=== PATIENT | female | born 1960 | race Caucasian/White ===

== ENCOUNTER 2017-01-02 14:22 | Outpatient (CLI) | payer MEDICARE, MEDICAID ==
[~2017-01-02 14:22] MED LIST: Gadobenate Dimeglumine 529 MG/1 ML (20ML VIAL) ONE
--- NOTE | 2017-01-02 18:41 | MRI ---
EXAM: CERVICAL SPINE MRI WITH AND WITHOUT CONTRAST 01/02/17 HISTORY: Left sided arm pain times several years. COMPARISON: None. TECHNIQUE: Cervical spine MRI is performed with and without intravenous gadolinium administration. Multisequent ial, multiplanar imaging is performed. FINDINGS: There is appropriate T1 marrow signal intensity of the cervical vertebrae. Cervical spine vertebral body height is maintained. No fracture. 2.5 mm of anterolisthesis of C4 upon C5. There is no evidenc e of significant STIR hyperintensity or abnormal enhancement. Note, evaluation of the C5, C6 and C7 levels is limited due to anterior fusion changes with resultan t metallic susceptibility artifact. Postcontrast images do not demonstrate any abnormal enhancement with regards to the visualized brain parenchyma or cervical cord. Thoracic cord is also unremarkable . C2-C3: No significant disc osteophyte complex. No significant central canal stenosis. Neural foramin a are patent. C3-C4: No significant disc osteophyte complex. No significant central canal stenosis. Neural foramin a are patent. There appears to be posterior decompression laminectomy changes. C4-C5: No significant disc osteophyte complex. No significant central canal stenosis. Right neural f oramen is patent. Moderate left foraminal narrowing due to degenerative changes of the uncovertebral joint and facet hypertrophy. Posterior decompressive laminectomy changes are identified. C5-C6: There is a presumed disc prosthesis. There is a small left paracentral osteophyte complex louis t abuts the thecal sac. No high grade central canal stenosis. Posterior decompressive laminectomy ch maggie are identified. Moderate bilateral foraminal narrowing due to degenerative change in the uncove rtebral joint. C6-C7: No significant disc osteophyte complex. No significant central canal stenosis. Nonspecific T2 hyperintensity in the left cord, 2 mm. Right neural foramen is mildly narrowed. Mild to moderate le ft foraminal narrowing. Posterior decompressive laminectomy changes are identified. C7-T1: No significant disc osteophyte complex. No significant central canal stenosis. Neural foramin a are patent. IMPRESSION: 1. Degenerative changes of the cervical spine as above. 2. 2 mm T2 hyperintensity at C6-C7. Possible small focus of gliosis. POS: [facility]
== END 2017-01-02 14:23 | disposition home or self-care (01) ==
LOC: TBSIIMAG 14:22
PROVIDERS: ATTEND Neurological Surgery
DX: M50.30 Other cervical disc degeneration, unspecified cervical region (principal); M47.812 Spondylosis without myelopathy or radiculopathy, cervical region
CPT/HCPCS: 72156; A9579